=== PATIENT | female | born 1980 | race African-American/Black ===

== ENCOUNTER 2018-10-10 19:57 | Emergency (ER) | payer MEDICAID ==
[~2018-10-10] VITALS: Ht 170.2 cm; Wt 118.0 kg
[2018-10-10] MEDS ORDERED: ONDANSETRON HCL 4MG/2ML INJ IV STA (22:29)
[2018-10-10] MEDS ORDERED: MAGNESIUM/ALUMINUM HYDROXIDE/SIMETHICONE 30ML UDC PO STA (22:29)
[2018-10-10] MEDS ORDERED: VISCOUS LIDOCAINE 2% 15 ML UDC PO STA (22:29)
[2018-10-10 23:11] LABS: BASOPHILS % 0.7 % (0.0-2.0); EOSINOPHILS % 0.2 % (0.0-5.0); HEMATOCRIT. 39.2 % (36.0-48.0); HEMOGLOBIN. 13.4 g/dL (12.0-16.0); LYMPHOCYTES % 23.9 % (20.0-50.0); MEAN CORPUSCULAR HEMOGLOBIN 26.1 pg (28.0-32.0); MEAN CORPUSCULAR VOLUME 76.1 fL (81.0-99.0); MEAN PLATELET VOLUME 9.6 fl (7.4-10.4); MONOCYTES % 11.6 % (2.0-8.0); NEUTROPHILS % 63.6 % (40.0-76.0); PLATELET 316 x1000/uL (130-400); RED BLOOD CELL COUNT 5.15 mill/uL (4.2-5.4); RED CELL DISTRIBUTION WIDTH 18.1 % (11.6-14.6)
[2018-10-10 23:18] LABS: CHLORIDE 99 mEq/L (98-107)
[2018-10-11] MEDS ORDERED: ONDANSETRON 4MG ODT PO ONE (03:45)
[2018-10-11 06:29] VITALS: BP 121/82
== END 2018-10-11 06:30 | disposition home or self-care (01) ==
LOC: ER 19:57
DX: R07.89 Other chest pain (principal); R11.2 Nausea with vomiting, unspecified; R10.9 Unspecified abdominal pain
CPT/HCPCS: 36415; 71045; 80053; 83605; 83690; 85025; 93005; 96374; 99284; J2405; Q0162

== ENCOUNTER 2018-12-01 08:09 | Emergency (ER) | payer MEDICAID ==
[~2018-12-01] VITALS: Ht 170.2 cm; Wt 109.0 kg
[2018-12-01] MEDS ORDERED: KETOROLAC 30MG/ML VIAL IV STA (10:43)
[2018-12-01] MEDS ORDERED: ONDANSETRON HCL 4MG/2ML INJ IV STA (10:43)
[2018-12-01 13:16] LABS: CLARITY URINE CLOUDY (CLEAR); COLOR URINE DARK YELLOW (YELLOW); KETONES URINE 2+ (NEGATIVE); LEUKOCYTE ESTERASE URINE 2+ (NEGATIVE); NITRITE URINE NEGATIVE (NEGATIVE); OCCULT BLOOD URINE 2+ (NEGATIVE); PROTEIN URINE 1+ (NEGATIVE); SPECIFIC GRAVITY URINE 1.032 (1.005-1.030)
[2018-12-01 13:46] VITALS: BP 138/82
== END 2018-12-01 13:51 | disposition home or self-care (01) ==
LOC: ER 08:20
DX: K52.89 Other specified noninfective gastroenteritis and colitis (principal)
CPT/HCPCS: 81003; 81025; 87086; 93005; 96374; 96375; 99284; J1885; J2405